=== PATIENT | female | born 1995 | race African-American/Black ===

== ENCOUNTER 2016-11-05 10:07 | Emergency (ER) | payer BC ==
[~2016-11-05 10:07] MED LIST: TYLE3 PO
[2016-11-05 10:10] VITALS: BP 134/64; PULSE 70; RESP 14; TEMP 98.1; O2SAT 98
--- NOTE | 2016-11-05 10:30 | PD ---
HPI Chief Complaint: Abdominal Pain Time Seen by Provider: 10:30 Travel History International Travel<30 days: No Contact w/Intl Traveler<30days: No Traveled to known affect area: No History of Present Illness HPI 21-year-old female came to the emergency room with history of some abdominal discomfort, nausea and vomiting for past 1 week. Patient said that she had her menstruation last week but started spotting again. There was a bedside done prior to my arrival which was negative. Patient did not look to be in any significant discomfort and vital signs are stable. [facility] Past Medical History Narrative Medical List of the past medical history as reviewed from the nursing note. Diminished Hearing: No ?: Not LMP: 11/05/16 Social History Alcohol Use: Yes (occasional) Tobacco Use: No Substance Use: No Allergies-Medications (Allergen,Severity, Reaction): Coded Allergies: No Known Allergies (Unverified , 01/23/16) Comments No known drug allergies. Reported Meds & Prescriptions Reported Meds & Active Scripts Active Macrobid (Nitrofurantoin Monoh/Nitrofur Macro) 100 Mg Cap 100 Mg PO BID Zofran (Ondansetron HCl) 4 Mg Tab 4 Mg PO Q6HR PRN Narrative Medication List of her home medications reviewed from the nursing note. Review of Systems Except as stated in HPI: all other systems reviewed are Neg Physical Exam Narrative GENERAL: Awake, alert, no obvious distress SKIN: Warm and dry. HEAD: Atraumatic. Normocephalic. EYES: Pupils equal and round. No scleral icterus. No injection or drainage. ENT: No nasal bleeding or discharge. Mucous membranes pink and moist. NECK: Trachea midline. No JVD. CARDIOVASCULAR: Regular rate and rhythm. No murmur appreciated. RESPIRATORY: No accessory muscle use. Clear to auscultation. Breath sounds equal bilaterally. GASTROINTESTINAL: Abdomen soft, non-tender, nondistended. Hepatic and splenic margins not palpable. MUSCULOSKELETAL: No obvious deformities. No clubbing. No cyanosis. No edema. NEUROLOGICAL: Awake and alert. No obvious cranial nerve deficits. Motor grossly within normal limits. Normal speech. PSYCHIATRIC: Appropriate mood and affect; insight and judgment normal. Data Data Last Documented VS Vital Signs Date Time Temp Pulse Resp B/P Pulse Ox O2 Delivery O2 Flow Rate FiO2 11/05/16 10:35 18 11/05/16 10:10 98.1 70 134/64 98 Orders Urinalysis - C+S If Indicated (11/05/16 10:30) Ed Urine Pregnancytest Poc (11/05/16 10:30) Ondansetron Odt (Zofran Odt) (11/05/16 10:45) Urine Culture (11/05/16 10:30) Nitrofurantoin Monohyd Macrocr (Macrobid (11/05/16 11:15) Labs Laboratory Tests Test 11/05/16 10:30 Urine Color YELLOW Urine Turbidity HAZY Urine pH 5.5 Urine Specific [place] 1.021 Urine Protein 30 mg/dL Urine Glucose (UA) NEG mg/dL Urine Ketones NEG mg/dL Urine Occult Blood LARGE Urine Nitrite NEG Urine Bilirubin NEG Urine Urobilinogen LESS THAN 2.0 MG/DL Urine Leukocyte Esterase TRACE Urine RBC 10 /hpf Urine WBC 5 /hpf Urine WBC Clumps RARE Urine Squamous Epithelial 8 /hpf Cells Urine Bacteria MOD /hpf Urine Mucus FEW /lpf Microscopic Urinalysis Comment CULTURE INDICATED MDM Medical Decision Making Medical Screen Exam Complete: Yes Emergency Medical Condition: Yes Medical Record Reviewed: Yes Differential Diagnosis Acute gastritis, UTI Narrative Course 11:15 AM UA suggestive of UTI. I'll discharge the patient home on antibiotic prescription and a Zofran prescription. She was given 1 dose of Macrobid in the ER. Procedures EKG Prior to Arrival: No Diagnosis Primary Impression: UTI (urinary tract infection) Qualified Code: N39.0 - Urinary tract infection without hematuria, site unspecified Additional Impression: Acute gastritis Qualified Code: K29.00 - Acute gastritis without hemorrhage, unspecified gastritis type Referrals: Primary Care Physician 2 days Additional Instructions: Please return to the ER if the condition worsens or any other medical complaints. Follow-up with your primary care otherwise. Take the medication as per the prescription direction. Med/Other Pt SpecificInfo: Prescription(s) given Scripts Nitrofurantoin Monohydrate Macrocrystals (Macrobid)100 Mg [id number] Mg PO BID #10 CAP Ref 0 Prov:Zaire Parks MD 11/05/16 Ondansetron (Zofran)4 Mg Tab4 Mg PO Q6HR PRN (NAUSEA OR VOMITING) #10 TAB Ref 0 Prov:Zaire Parks MD 11/05/16 Disposition: 01 DISCHARGE HOME Condition: Stable Zaire Parks MD Nov 05, 2016 10:30 Zaire Parks MD Nov 05, 2016 10:30
[2016-11-05] MEDS ORDERED: ONDANSETRON ODT 4 MG TAB PO ONE (10:45)
[2016-11-05 10:58] LABS: BACTERIA, URINE MOD /hpf; BLOOD, URINE LARGE (NEG); GLUCOSE,URINE NEG (NEG); KETONE, URINE NEG (NEG); MUCUS URINE FEW /lpf (OCC); NITRITE,URINE NEG (NEG); PH, URINE 5.5 (5.0-8.5); SQUAMOUS EPITHELIAL CELL URINE 8 /hpf (0-5); URINE COLOR YELLOW (YELLW/STRAW)
[2016-11-05 10:59] LABS: COMMENT (UR) CULTURE INDICATED; CULTURE IF INDICATED CULTURE INDICATED
[2016-11-05] MEDS ORDERED: NITROFURANTOIN MONOHYD MACROCR 100 MG CAP PO ONE (11:15)
[2016-11-05] MEDS ORDERED: MACR100C2 PO (11:17)
[2016-11-05] MEDS ORDERED: ZOFR4TAB PO (11:17)
== END 2016-11-05 11:30 | disposition home or self-care (01) ==
LOC: NEPE 10:07
DX: N39.0 Urinary tract infection, site not specified (principal); K29.00 Acute gastritis without bleeding
CPT/HCPCS: 81001; 84703; 87086; 99284

== ENCOUNTER 2017-01-14 21:17 | Emergency (ER) | payer BC ==
[~2017-01-14 21:17] MED LIST changes: +MACR100C2 PO; -TYLE3 PO; +ZOFR4TAB PO
[2017-01-14 21:18] VITALS: BP 136/70; PULSE 80; RESP 14; TEMP 98.4; O2SAT 97
--- NOTE | 2017-01-14 22:40 | PD ---
Physical Exam Time Seen by Provider: 22:37 Narrative Pt ate [employer] 3 days ago and has N/V/ D since. Denies hematemesis. Uncertain of stool due to currently being on her menstrual cycle. Associated RLQ pain that is intermittent; mostly right before a BM. Denies fever/ chills. No significant medical history. No other symptoms to report. Data Data Last Documented VS Vital Signs Date Time Temp Pulse Resp B/P Pulse Ox O2 Delivery O2 Flow Rate FiO2 01/14/17 21:18 98.4 80 14 136/70 97 Room Air [facility] Medical Record Reviewed: Yes Supervised Visit with TRAE: No Narrative Course Pt evaluated in triage. Appears without distress. VSS Scripts No Active Prescriptions or Reported Meds Condition: Stable Kaitlin Conrad Jan 14, 2017 22:40
[2017-01-15] MEDS ORDERED: ONDANSETRON ODT 4 MG TAB PO ONE (00:30)
[2017-01-15 01:15] LABS: AUTOMATED NEUTROPHIL # 4.5 TH/MM3 (1.8-7.7); BASOPHIL # 0.1 TH/MM3 (0-0.2); BASOPHIL % 0.8 % (0.0-2.0); EOSINOPHIL # 0.3 TH/MM3 (0-0.4); EOSINOPHIL % 3.6 % (0.0-4.0); LYMPH % 39.9 % (9.0-44.0); LYMPHOCYTE # 3.6 TH/MM3 (1.0-4.8); MEAN CELL VOLUME 72.1 FL (80.0-100.0); MEAN CORPUSCULAR HEMOGLOBIN 23.4 PG (27.0-34.0); MEAN CORPUSCULAR HGB CONC 32.4 % (32.0-36.0); MONO % 5.3 % (0.0-8.0); NEUT % 50.4 % (16.0-70.0); PLATELET COUNT 341 TH/MM3 (150-450); RED BLOOD COUNT 4.72 MIL/MM3 (4.00-5.30); RED CELL DISTRIBUTION WIDTH 14.3 % (11.6-17.2); WHITE BLOOD COUNT 8.9 TH/MM3 (4.0-11.0)
[2017-01-15 01:17] LABS: HEMO FLAGS AUTO DIFF
[2017-01-15 01:37] LABS: ALKALINE PHOSPHATASE 71 U/L (45-117); ALT (GPT) 16 U/L (10-53); ANION GAP 6 MEQ/L (5-15); AST (GOT) 14 U/L (15-37); BLOOD UREA NITROGEN 8 MG/DL (7-18); CHLORIDE 106 MEQ/L (98-107); GLOMERULAR FILTRATION RATE 113 ML/MIN (>89); POTASSIUM 3.4 MEQ/L (3.5-5.1); SODIUM (NA) 139 MEQ/L (136-145); TOTAL BILIRUBIN ADULT 0.2 MG/DL (0.2-1.0)
[2017-01-15 01:47] LABS: OVALOCYTES 1+ (NORMAL)
[2017-01-15 01:48] LABS: SCAN/DIFF AUTO DIFF CONFIRMED
--- NOTE | 2017-01-15 03:08 | PD ---
HPI Chief Complaint: GI Complaint Time Seen by Provider: 02:52 Travel History International Travel<30 days: No Contact w/Intl Traveler<30days: No Traveled to known affect area: No History of Present Illness HPI 21yo F with no PMH presents to the ED with c/o NBNB vomiting and nonbloody diarrhea today. Denies any fever, chest pain, sob, abdominal pain, urinary complaint, vaginal bleeding or discharge. PFSH Past Medical History Medical History: Denies Significant Hx Diminished Hearing: No ?: Not Past Surgical History Surgical History: No Previous Surgery Social History Alcohol Use: Yes (occasional) Tobacco Use: No Substance Use: No Allergies-Medications (Allergen,Severity, Reaction): Coded Allergies: No Known Allergies (Unverified , 01/14/17) Reported Meds & Prescriptions Reported Meds & Active Scripts Active No Active Prescriptions or Reported Medications Review of Systems Except as stated in HPI: all other systems reviewed are Neg Physical Exam Narrative GENERAL: 21yo F well appearing. SKIN: Focused skin assessment warm/dry. HEAD: Atraumatic. Normocephalic. EYES: Pupils equal and round. No scleral icterus. No injection or drainage. ENT: No nasal bleeding or discharge. Mucous membranes pink and moist. NECK: Trachea midline. No JVD. CARDIOVASCULAR: Regular rate and rhythm. No murmur appreciated. RESPIRATORY: No accessory muscle use. Clear to auscultation. Breath sounds equal bilaterally. GASTROINTESTINAL: Abdomen soft, non-tender, nondistended. No rebound tenderness or guarding. MUSCULOSKELETAL: No obvious deformities. No clubbing. No cyanosis. No edema. NEUROLOGICAL: Awake and alert. No obvious cranial nerve deficits. Motor grossly within normal limits. Normal speech. PSYCHIATRIC: Appropriate mood and affect; insight and judgment normal. Data Data Last Documented VS Vital Signs Date Time Temp Pulse Resp B/P Pulse Ox O2 Delivery O2 Flow Rate FiO2 01/14/17 21:18 98.4 80 14 136/70 97 Room Air Orders Complete Blood Count With Diff (01/15/17 00:22) Comprehensive Metabolic Panel (01/15/17 00:22) Lipase (01/15/17 00:22) Urinalysis - C+S If Indicated (01/15/17 00:22) Iv Access Insert/Monitor (01/15/17 00:22) Ed Urine Pregnancytest Poc (01/15/17 00:22) Ondansetron Odt (Zofran Odt) (01/15/17 00:30) Labs Laboratory Tests Test 01/15/17 00:57 White Blood Count 8.9 TH/MM3 Red Blood Count 4.72 MIL/MM3 Hemoglobin 11.0 GM/DL Hematocrit 34.0 % Mean Corpuscular Volume 72.1 FL Mean Corpuscular Hemoglobin 23.4 PG Mean Corpuscular Hemoglobin 32.4 % Concent Red Cell Distribution Width 14.3 % Platelet Count 341 TH/MM3 Mean Platelet Volume 8.9 FL Neutrophils (%) (Auto) 50.4 % Lymphocytes (%) (Auto) 39.9 % Monocytes (%) (Auto) 5.3 % Eosinophils (%) (Auto) 3.6 % Basophils (%) (Auto) 0.8 % Neutrophils # (Auto) 4.5 TH/MM3 Lymphocytes # (Auto) 3.6 TH/MM3 Monocytes # (Auto) 0.5 TH/MM3 Eosinophils # (Auto) 0.3 TH/MM3 Basophils # (Auto) 0.1 TH/MM3 CBC Comment AUTO DIFF Differential Comment AUTO DIFF CONFIRMED Ovalocytes 1+ Sodium Level 139 MEQ/L Potassium Level 3.4 MEQ/L Chloride Level 106 MEQ/L Carbon Dioxide Level 27.0 MEQ/L Anion Gap 6 MEQ/L Blood Urea Nitrogen 8 MG/DL Creatinine 0.78 MG/DL Estimat Glomerular Filtration 113 ML/MIN Rate Random Glucose 89 MG/DL Calcium Level 8.6 MG/DL Total Bilirubin 0.2 MG/DL Aspartate Amino Transf 14 U/L (AST/SGOT) Alanine Aminotransferase 16 U/L (ALT/SGPT) Alkaline Phosphatase 71 U/L Total Protein 7.5 GM/DL Albumin 3.8 GM/DL Lipase 129 U/L [facility] Medical Decision Making Medical Screen Exam Complete: Yes Emergency Medical Condition: Yes Interpretation(s) Laboratory Tests Test 01/15/17 00:57 White Blood Count 8.9 TH/MM3 (4.0-11.0) Red Blood Count 4.72 MIL/MM3 (4.00-5.30) Hemoglobin 11.0 GM/DL (11.6-15.3) Hematocrit 34.0 % (35.0-46.0) Mean Corpuscular Volume 72.1 FL (80.0-100.0) Mean Corpuscular Hemoglobin 23.4 PG (27.0-34.0) Mean Corpuscular Hemoglobin 32.4 % Concent (32.0-36.0) Red Cell Distribution Width 14.3 % (11.6-17.2) Platelet Count 341 TH/MM3 (150-450) Mean Platelet Volume 8.9 FL (7.0-11.0) Neutrophils (%) (Auto) 50.4 % (16.0-70.0) Lymphocytes (%) (Auto) 39.9 % (9.0-44.0) Monocytes (%) (Auto) 5.3 % (0.0-8.0) Eosinophils (%) (Auto) 3.6 % (0.0-4.0) Basophils (%) (Auto) 0.8 % (0.0-2.0) Neutrophils # (Auto) 4.5 TH/MM3 (1.8-7.7) Lymphocytes # (Auto) 3.6 TH/MM3 (1.0-4.8) Monocytes # (Auto) 0.5 TH/MM3 (0-0.9) Eosinophils # (Auto) 0.3 TH/MM3 (0-0.4) Basophils # (Auto) 0.1 TH/MM3 (0-0.2) CBC Comment AUTO DIFF Differential Comment AUTO DIFF CONFIRMED Ovalocytes 1+ (NORMAL) Sodium Level 139 MEQ/L (136-145) Potassium Level 3.4 MEQ/L (3.5-5.1) Chloride Level 106 MEQ/L (98-107) Carbon Dioxide Level 27.0 MEQ/L (21.0-32.0) Anion Gap 6 MEQ/L (5-15) Blood Urea Nitrogen 8 MG/DL (7-18) Creatinine 0.78 MG/DL (0.50-1.00) Estimat Glomerular Filtration 113 ML/MIN Rate (>89) Random Glucose 89 MG/DL (74-106) Calcium Level 8.6 MG/DL (8.5-10.1) Total Bilirubin 0.2 MG/DL (0.2-1.0) Aspartate Amino Transf 14 U/L (15-37) (AST/SGOT) Alanine Aminotransferase 16 U/L (10-53) (ALT/SGPT) Alkaline Phosphatase 71 U/L (45-117) Total Protein 7.5 GM/DL (6.4-8.2) Albumin 3.8 GM/DL (3.4-5.0) Lipase 129 U/L (73-393) Differential Diagnosis Gastroenteritis vs. viral syndrome Narrative Course 21yo F with vomiting and diarrhea today. Pt has no abdominal pain or tenderness on exam. Labs reviewed, no leukocytosis. H/H 34.0. K: 3.4. Pt given zofran and feels better. Tolerating PO now. Pt has not given any urine sample and wants to go. Understands that we will not be able to check for urine infection. VS stable. Return precautions given. Diagnosis Primary Impression: Gastroenteritis Patient Instructions: General Instructions Departure Forms: Tests/Procedures Additional Instructions: Please follow up with your PMD in 3-7 days. Return to the ED if symptoms worsen. Med/Other Pt SpecificInfo: Prescription(s) given Scripts Ondansetron Odt (Zofran Odt)4 Mg Tab4 Mg SL Q8HR PRN (Nausea/Vomiting) #7 TAB Ref 0 Prov:Anita Xiong DO 01/15/17 Disposition: 01 DISCHARGE HOME Condition: Stable Anita Xiong DO Jan 15, 2017 03:08
[2017-01-15] MEDS ORDERED: ZOFR4TAB3 SL (05:03)
== END 2017-01-15 05:11 | disposition home or self-care (01) ==
LOC: NEPC 21:17
DX: K52.9 Noninfective gastroenteritis and colitis, unspecified (principal)
CPT/HCPCS: 80053; 83690; 85025; 99283

== ENCOUNTER 2017-04-30 20:30 | Emergency (ER) | payer SELFPAY ==
[~2017-04-30] VITALS: Ht 160 cm; Wt 68.0 kg
[~2017-04-30 20:30] MED LIST changes: -MACR100C2 PO; -ZOFR4TAB PO; +ZOFR4TAB3 SL
[2017-04-30 20:33] VITALS: BP 116/69; PULSE 127; RESP 16; TEMP 103; O2SAT 100
[2017-04-30] MEDS ORDERED: ONDANSETRON HCL 4 MG/2 ML VIAL IV PUSH ONE (21:30)
[2017-04-30] MEDS ORDERED: SODIUM CHLOR 0.9% 1000 ML INJ 100 ML IV ONE (21:30)
[2017-04-30] MEDS ORDERED: SODIUM CHLOR 0.9% 1000 ML INJ 1,000 ML IV ONE ×2 (21:30)
[2017-04-30 21:35] VITALS: RESP 16
--- NOTE | 2017-04-30 21:50 | PD ---
HPI Chief Complaint: Cold / Flu Symptoms Time Seen by Provider: 21:22 Travel History International Travel<30 days: No Contact w/Intl Traveler<30days: No Traveled to known affect area: No History of Present Illness HPI 21-year-old otherwise healthy female here with complaint of flulike symptoms. Patient has been ill for the last 2 days with body aches, nausea, vomiting, fever, cough. She's had 3 episodes of vomiting. No hematemesis. No associated abdominal pain or diarrhea. Cough is primarily nonproductive. Temperature up to 105 at home, she took Motrin approximately 2 hours prior to arrival. No recent travel or sick contacts. PFSH Past Medical History Medical History: Denies Significant Hx Diminished Hearing: No Immunizations Current: Yes Tetanus Vaccination: Unknown Influenza Vaccination: Yes ?: Not LMP: CURRENTLY Past Surgical History Surgical History: No Previous Surgery Social History Alcohol Use: Yes (occasional) Tobacco Use: No Substance Use: No Allergies-Medications (Allergen,Severity, Reaction): Coded Allergies: No Known Allergies (Unverified , 04/30/17) Reported Meds & Prescriptions Reported Meds & Active Scripts Active No Active Prescriptions or Reported Medications Review of Systems Except as stated in HPI: all other systems reviewed are Neg Physical Exam Narrative GENERAL: Well-appearing female in no acute distress SKIN: Focused skin assessment warm/dry. HEAD: Normocephalic. EYES: Pupils equal and round. No scleral icterus. No injection or drainage. ENT: No nasal bleeding or discharge. Mucous membranes pink and moist. TMs clear bilaterally. NECK: Supple without nuchal rigidity CARDIOVASCULAR: Tachycardic with heart rate in the 120s, regular rhythm. No murmur appreciated. RESPIRATORY: No accessory muscle use. Clear to auscultation. Breath sounds equal bilaterally. GASTROINTESTINAL: Abdomen soft, non-tender, nondistended. Obese MUSCULOSKELETAL: No obvious deformities. No edema. NEUROLOGICAL: Awake and alert. Motor grossly within normal limits. Normal speech. PSYCHIATRIC: Appropriate mood and affect; insight and judgment normal. Data Data Last Documented VS Vital Signs Date Time Temp Pulse Resp B/P Pulse Ox O2 Delivery O2 Flow Rate FiO2 04/30/17 23:18 99.6 98 16 124/64 100 Room Air Orders Complete Blood Count With Diff (04/30/17 21:30) Comprehensive Metabolic Panel (04/30/17 21:30) Lactic Acid Sepsis Protocol (04/30/17 21:30) Urinalysis - C+S If Indicated (04/30/17 21:30) Influenzae A/B Antigen (04/30/17 21:30) Blood Culture (04/30/17 21:30) Chest, Single Ap (04/30/17 21:30) Ecg Monitoring (04/30/17 21:30) Iv Access Insert/Monitor (04/30/17 21:30) Oximetry (04/30/17 21:30) Sodium Chlor 0.9% 1000 Ml Inj (Ns 1000 M (04/30/17 21:30) Sodium Chlor 0.9% 1000 Ml Inj (Ns 1000 M (04/30/17 21:30) Sodium Chlor 0.9% 1000 Ml Inj (Ns 1000 M (04/30/17 21:30) Ondansetron Inj (Zofran Inj) (04/30/17 21:30) Acetaminophen (Tylenol) (04/30/17 22:00) Urine Culture (04/30/17 21:40) Labs Laboratory Tests Test 04/30/17 21:40 White Blood Count 4.5 TH/MM3 Red Blood Count 4.80 MIL/MM3 Hemoglobin 11.0 GM/DL Hematocrit 34.6 % Mean Corpuscular Volume 71.9 FL Mean Corpuscular Hemoglobin 22.9 PG Mean Corpuscular Hemoglobin 31.8 % Concent Red Cell Distribution Width 13.9 % Platelet Count 246 TH/MM3 Mean Platelet Volume 9.5 FL Neutrophils (%) (Auto) 73.3 % Lymphocytes (%) (Auto) 17.9 % Monocytes (%) (Auto) 7.8 % Eosinophils (%) (Auto) 0.4 % Basophils (%) (Auto) 0.6 % Neutrophils # (Auto) 3.3 TH/MM3 Lymphocytes # (Auto) 0.8 TH/MM3 Monocytes # (Auto) 0.4 TH/MM3 Eosinophils # (Auto) 0.0 TH/MM3 Basophils # (Auto) 0.0 TH/MM3 CBC Comment DIFF FINAL Differential Comment Urine Color YELLOW Urine Turbidity HAZY Urine pH 5.5 Urine Specific [place] 1.003 Urine Protein NEG mg/dL Urine Glucose (UA) NEG mg/dL Urine Ketones NEG mg/dL Urine Occult Blood MOD Urine Nitrite NEG Urine Bilirubin NEG Urine Urobilinogen LESS THAN 2.0 MG/DL Urine Leukocyte Esterase NEG Urine RBC 83 /hpf Urine Squamous Epithelial 1 /hpf Cells Urine Bacteria FEW /hpf Microscopic Urinalysis Comment CATH-CULTURE IND Sodium Level 137 MEQ/L Potassium Level 3.3 MEQ/L Chloride Level 105 MEQ/L Carbon Dioxide Level 25.2 MEQ/L Anion Gap 7 MEQ/L Blood Urea Nitrogen 3 MG/DL Creatinine 0.98 MG/DL Estimat Glomerular Filtration 87 ML/MIN Rate Random Glucose 83 MG/DL Lactic Acid Level 1.3 mmol/L Calcium Level 8.3 MG/DL Total Bilirubin 0.2 MG/DL Aspartate Amino Transf 20 U/L (AST/SGOT) Alanine Aminotransferase 20 U/L (ALT/SGPT) Alkaline Phosphatase 61 U/L Total Protein 7.3 GM/DL Albumin 3.5 GM/DL [facility] Medical Decision Making Medical Screen Exam Complete: Yes Emergency Medical Condition: Yes Medical Record Reviewed: Yes Differential Diagnosis 21-year-old female here with 2 days of flulike symptoms, nausea vomiting, body aches and fever, cough. Febrile to 103, tachycardic in the 120s but well- appearing on exam. Differential includes viral syndrome, influenza, pneumonia, gastritis, and less likely bacteremia, UTI Narrative Course Patient placed on monitor, IV established and blood obtained. Given IV fluid bolus, 4 mg Zofran, Tylenol. CBC, CMP, lactate, blood cultures, urinalysis and influenza swab were obtained and notable for hematuria, patient currently menstruating. Potassium 3.3, replaced orally. Portable chest x-ray obtained showing no acute abnormalities. Vital signs markedly improved, now afebrile 99.6 and heart rate in the 90s. Patient reassured and discharged home. Diagnosis Primary Impression: Viral syndrome Additional Impressions: Hypokalemia Fever Qualified Code: R50.9 - Fever, unspecified fever cause Tachycardia Referrals: Primary Care Physician as needed Additional Instructions: Drink plenty of fluids. Tylenol, ibuprofen as needed for fever or body aches. Return to the ER for the warning signs discussed. Med/Other Pt SpecificInfo: No Change to Meds Scripts No Active Prescriptions or Reported Meds Disposition: DISCHARGE HOME Condition: Stable Leny Alonzo MD Apr 30, 2017 21:50
[2017-04-30] MEDS ORDERED: ACETAMINOPHEN 500 MG CPLT PO ONE (22:00)
[2017-04-30 22:11] VITALS: BP 121/72; PULSE 101; RESP 16; TEMP 101; O2SAT 98
[2017-04-30 22:16] LABS: AUTOMATED NEUTROPHIL # 3.3 TH/MM3 (1.8-7.7); BASOPHIL % 0.6 % (0.0-2.0); EOSINOPHIL % 0.4 % (0.0-4.0); HEMATOCRIT 34.6 % (35.0-46.0); HEMO FLAGS DIFF FINAL; LYMPH % 17.9 % (9.0-44.0); LYMPHOCYTE # 0.8 TH/MM3 (1.0-4.8); MEAN CELL VOLUME 71.9 FL (80.0-100.0); MEAN CORPUSCULAR HEMOGLOBIN 22.9 PG (27.0-34.0); MEAN CORPUSCULAR HGB CONC 31.8 % (32.0-36.0); MONO % 7.8 % (0.0-8.0); NEUT % 73.3 % (16.0-70.0); PLATELET COUNT 246 TH/MM3 (150-450); RED CELL DISTRIBUTION WIDTH 13.9 % (11.6-17.2); WHITE BLOOD COUNT 4.5 TH/MM3 (4.0-11.0)
--- NOTE | 2017-04-30 22:17 | RADRPT ---
EXAM DATE/TIME: 04/30/2017 21:44 [place] COMPARISON: No previous studies available for comparison. INDICATIONS : Fever, flu-like symptoms for 3 days MEDICAL HISTORY : None. SURGICAL HISTORY : None. ENCOUNTER: Initial ACUITY: 3 days PAIN SCORE: 0/10 LOCATION: Bilateral chest FINDINGS: A single view of the chest demonstrates the lungs to be symmetrically aerated without evidence of mas s, infiltrate or effusion. The cardiomediastinal contours are unremarkable. Osseous structures are intact. CONCLUSION: No evidence of acute cardiopulmonary disease. Christopher Crocker MD on April 30, 2017 at 22:15 Board Certified Radiologist. This report was verified electronically.
[2017-04-30 22:21] LABS: BACTERIA, URINE FEW /hpf; BLOOD, URINE MOD (NEG); GLUCOSE,URINE NEG (NEG); KETONE, URINE NEG (NEG); NITRITE,URINE NEG (NEG); PH, URINE 5.5 (5.0-8.5); SQUAMOUS EPITHELIAL CELL URINE 1 /hpf (0-5); URINE COLOR YELLOW (YELLW/STRAW)
[2017-04-30 22:27] LABS: COMMENT (UR) CATH-CULTURE IND; CULTURE IF INDICATED CATH CULTURE IND
[2017-04-30 22:28] LABS: ALKALINE PHOSPHATASE 61 U/L (45-117); ALT (GPT) 20 U/L (10-53); TOTAL BILIRUBIN ADULT 0.2 MG/DL (0.2-1.0)
[2017-04-30 22:33] LABS: ANION GAP 7 MEQ/L (5-15); AST (GOT) 20 U/L (15-37); BICARBONATE 25.2 MEQ/L (21.0-32.0); BLOOD UREA NITROGEN 3 MG/DL (7-18); CHLORIDE 105 MEQ/L (98-107); GLOMERULAR FILTRATION RATE 87 ML/MIN (>89); POTASSIUM 3.3 MEQ/L (3.5-5.1); SODIUM (NA) 137 MEQ/L (136-145)
[2017-04-30 22:37] VITALS: TEMP 100.5
[2017-04-30 23:18] VITALS: BP 124/64; PULSE 98; RESP 16; TEMP 99.6; O2SAT 100
[2017-04-30] MEDS ORDERED: POTASSIUM CHLORIDE 20 MEQ CONTROLLED RELEASE TAB PO ONE (23:45)
[2017-04-30] MEDS ORDERED: POTASSIUM CHLORIDE 25 MEQ EFFERVESCENT TAB NG ONE (23:50)
[2017-05-01] MEDS ORDERED: POTASSIUM CHLORIDE 25 MEQ EFFERVESCENT TAB NG SCH (09:00)
== END 2017-05-01 00:25 | disposition home or self-care (01) ==
LOC: NEPE 20:30
DX: B34.9 Viral infection, unspecified (principal); E87.6 Hypokalemia; R00.0 Tachycardia, unspecified
CPT/HCPCS: 71010; 80053; 81001; 83605; 85025; 87040; 87086; 87804; 96374; 99284; J2405; J7030

== ENCOUNTER 2017-06-19 08:37 | Emergency (ER) | payer SELFPAY ==
[~2017-06-19] VITALS: Ht 157.5 cm; Wt 75.0 kg
[2017-06-19 08:41] VITALS: BP 135/74; PULSE 78; RESP 16; TEMP 98.8; O2SAT 99
[2017-06-19 09:21] LABS: AUTOMATED NEUTROPHIL # 3.1 TH/MM3 (1.8-7.7); BASOPHIL # 0.3 TH/MM3 (0-0.2); BASOPHIL % 5.4 % (0.0-2.0); EOSINOPHIL # 0.3 TH/MM3 (0-0.4); HEMATOCRIT 35.4 % (35.0-46.0); HEMO FLAGS DIFF FINAL; LYMPH % 32.9 % (9.0-44.0); MEAN CELL VOLUME 73.1 FL (80.0-100.0); MEAN CORPUSCULAR HEMOGLOBIN 23.2 PG (27.0-34.0); MEAN CORPUSCULAR HGB CONC 31.7 % (32.0-36.0); MONO % 5.6 % (0.0-8.0); NEUT % 51.1 % (16.0-70.0); PLATELET COUNT 358 TH/MM3 (150-450); RED BLOOD COUNT 4.85 MIL/MM3 (4.00-5.30); RED CELL DISTRIBUTION WIDTH 14.8 % (11.6-17.2); WHITE BLOOD COUNT 6.1 TH/MM3 (4.0-11.0)
[2017-06-19 09:37] LABS: BACTERIA, URINE MOD /hpf; BICARBONATE 23.9 MEQ/L (21.0-32.0); BLOOD, URINE LARGE (NEG); COMMENT (UR) CULTURE INDICATED; CULTURE IF INDICATED CULTURE INDICATED; GLUCOSE,URINE NEG (NEG); KETONE, URINE NEG (NEG); MUCUS URINE FEW /lpf (OCC); NITRITE,URINE NEG (NEG); PH, URINE 5.5 (5.0-8.5); POTASSIUM 3.5 MEQ/L (3.5-5.1); SQUAMOUS EPITHELIAL CELL URINE 14 /hpf (0-5)
[2017-06-19] MEDS ORDERED: DICY10 PO (09:39)
[2017-06-19] MEDS ORDERED: LOMO2.5T PO (09:39)
[2017-06-19] MEDS ORDERED: ZOFR4TAB3 SL (09:39)
--- NOTE | 2017-06-19 09:39 | PD ---
HPI Chief Complaint: GI Complaint Time Seen by Provider: 09:25 Travel History International Travel<30 days: No Contact w/Intl Traveler<30days: No Traveled to known affect area: No History of Present Illness HPI 21-year-old female complains of nausea vomiting diarrhea and abdominal Cramping. Patient states that the symptoms started yesterday. Patient denies any fever chills. Patient denies any coughing congestion. Patient states the abdominal pain is mild intermittent cramping pain diffuse over the abdomen. Patient denies any pain radiation. Patient denies any dysuria or frequency. Patient denies any vaginal discharge or bleeding. Patient denies any chance of being . PFSH Past Medical History Diminished Hearing: No Immunizations Current: Yes ?: Not LMP: 06/18/17 Social History Alcohol Use: Yes (occasional) Tobacco Use: No Substance Use: No Allergies-Medications (Allergen,Severity, Reaction): Coded Allergies: No Known Allergies (Unverified , 06/19/17) Reported Meds & Prescriptions Reported Meds & Active Scripts Active No Active Prescriptions or Reported Medications Review of Systems General / Constitutional: No: Fever Eyes: No: Visual changes HENT: No: Headaches Cardiovascular: No: Chest Pain or Discomfort Respiratory: No: Shortness of Breath Gastrointestinal: Positive: Nausea, Vomiting, Diarrhea, Abdominal Pain Genitourinary: No: Dysuria Musculoskeletal: No: Pain Skin: No Rash Neurologic: No: Weakness Psychiatric: No: Depression Endocrine: No: Polydipsia Hematologic/Lymphatic: No: Easy Bruising Physical Exam Narrative GENERAL: Well-nourished, well-developed patient. SKIN: Focused skin assessment warm/dry. HEAD: Normocephalic. EYES: No scleral icterus. No injection or drainage. NECK: Supple, trachea midline. No JVD or lymphadenopathy. CARDIOVASCULAR: Regular rate and rhythm without murmurs, gallops, or rubs. RESPIRATORY: Breath sounds equal bilaterally. No accessory muscle use. GASTROINTESTINAL: Abdomen soft, nondistended. Mild diffuse tenderness over the lower abdomen. No rebound tenderness. No mass. MUSCULOSKELETAL: No cyanosis, or edema. BACK: Nontender without obvious deformity. No CVA tenderness. Data Data Last Documented VS Vital Signs Date Time Temp Pulse Resp B/P (MAP) Pulse Ox O2 Delivery O2 Flow Rate FiO2 06/19/17 08:41 98.8 78 16 135/74 (94) 99 Orders Orders Complete Blood Count With Diff (06/19/17 08:45) Basic Metabolic Panel (Bmp) (06/19/17 08:45) Urinalysis - C+S If Indicated (06/19/17 08:45) Ed Urine Pregnancytest Poc (06/19/17 08:45) Labs Laboratory Tests Test 06/19/17 09:02 White Blood Count 6.1 TH/MM3 Red Blood Count 4.85 MIL/MM3 Hemoglobin 11.2 GM/DL Hematocrit 35.4 % Mean Corpuscular Volume 73.1 FL Mean Corpuscular Hemoglobin 23.2 PG Mean Corpuscular Hemoglobin Concent 31.7 % Red Cell Distribution Width 14.8 % Platelet Count 358 TH/MM3 Mean Platelet Volume 9.1 FL Neutrophils (%) (Auto) 51.1 % Lymphocytes (%) (Auto) 32.9 % Monocytes (%) (Auto) 5.6 % Eosinophils (%) (Auto) 5.0 % Basophils (%) (Auto) 5.4 % Neutrophils # (Auto) 3.1 TH/MM3 Lymphocytes # (Auto) 2.0 TH/MM3 Monocytes # (Auto) 0.3 TH/MM3 Eosinophils # (Auto) 0.3 TH/MM3 Basophils # (Auto) 0.3 TH/MM3 CBC Comment DIFF FINAL Differential Comment MDM Medical Decision Making Medical Screen Exam Complete: Yes Emergency Medical Condition: Yes Interpretation(s) Urine test negative. Differential Diagnosis Differential diagnosis including gastroenteritis, gastritis, PUD, pancreatitis, cholecystitis, colitis, UTI, pyelonephritis. Narrative Course 21-year-old female with abdominal cramp nausea vomiting diarrhea. Diagnosis Primary Impression: Gastroenteritis Patient Instructions: General Instructions Additional Instructions: Clear fluids for 24 hours and advance as tolerated. Take medications as needed. Follow-up with personal physician. Return if persistent problem worse. Med/Other Pt SpecificInfo: Prescription(s) given Scripts Diphenoxylate-Atropine (Lomotil) 2.5-0.025 Mg Tab 1 TAB PO Q6H Y for DIARRHEA, #10 TAB 0 Refills Prov: Rolf Estrada MD 06/19/17 Dicyclomine (Bentyl) 10 Mg Cap 10 MG PO TID Y for Bowel Management, #15 CAP 0 Refills Prov: Rolf Estrada MD 9/2/17 Ondansetron Odt (Zofran Odt) 4 Mg Tab 4 MG SL Q6HR Y for Nausea/Vomiting, #10 TAB 0 Refills Prov: Rolf Estrada MD 06/19/17 Disposition: 01 DISCHARGE HOME Condition: Stable Rolf Estrada MD Jun 19, 2017 09:39
[2017-06-19 10:01] VITALS: BP 122/78; TEMP 97.8
[2017-06-19 13:25] LABS: URINE COLOR RED (YELLW/STRAW)
== END 2017-06-19 10:02 | disposition home or self-care (01) ==
LOC: NEPD 08:37
DX: K52.9 Noninfective gastroenteritis and colitis, unspecified (principal); R82.71 Bacteriuria
CPT/HCPCS: 80048; 81001; 84703; 85025; 87086; 99284

== ENCOUNTER 2017-07-10 00:04 | Emergency (ER) | payer SELFPAY ==
[~2017-07-10] VITALS: Ht 157.5 cm; Wt 78.0 kg
[~2017-07-10 00:04] MED LIST changes: +DICY10 PO; +LOMO2.5T PO
[2017-07-10 00:05] VITALS: BP 152/65; PULSE 80; RESP 15; TEMP 99.4; O2SAT 100
[2017-07-10 01:45] LABS: BLOOD, URINE NEG (NEG); COMMENT (UR) CULT NOT INDICATED; CULTURE IF INDICATED CULT NOT INDICATED; GLUCOSE,URINE NEG (NEG); KETONE, URINE NEG (NEG); MUCUS URINE FEW /lpf (OCC); NITRITE,URINE NEG (NEG); PH, URINE 6.5 (5.0-8.5); SQUAMOUS EPITHELIAL CELL URINE <1 /hpf (0-5); URINE COLOR YELLOW (YELLW/STRAW)
--- NOTE | 2017-07-10 01:47 | PD ---
HPI Chief Complaint: GI Complaint Time Seen by Provider: 00:59 Travel History International Travel<30 days: No Contact w/Intl Traveler<30days: No Traveled to known affect area: No History of Present Illness HPI 21-year-old female presents to the emergency department for complaint of UTI. Patient's had symptoms for approximately 2 weeks. Symptoms have worsened were not she has dysuria frequency and urgency. Patient denies fever chills nausea vomiting flank pain hematuria vaginal bleeding or vaginal discharge. Last menses was 2 weeks ago and normal for her patient denies . Patient has history of UTI states symptoms are the same. PFSH Past Medical History Narrative Medical Gastroenteritis, UTI; no tobacco use; nursing notes reviewed Diminished Hearing: No Gastrointestinal Disorders: Yes (GASTROENTERITIS) Immunizations Current: Yes ?: Unknown LMP: 06/14/17 Past Surgical History Surgical History: No Previous Surgery Social History Alcohol Use: No Tobacco Use: No Substance Use: No Allergies-Medications (Allergen,Severity, Reaction): Coded Allergies: No Known Allergies (Unverified , 07/10/17) Reported Meds & Prescriptions Reported Meds & Active Scripts Active Lomotil (Diphenoxylate-Atropine) 2.5-0.025 Mg Tab 1 Tab PO Q6H PRN Bentyl (Dicyclomine HCl) 10 Mg Cap 10 Mg PO TID PRN Zofran Odt (Ondansetron Odt) 4 Mg Tab 4 Mg SL Q6HR PRN Review of Systems General / Constitutional: No: Fever, Chills HENT: No: Congestion Cardiovascular: No: Chest Pain or Discomfort Respiratory: No: Shortness of Breath Gastrointestinal: No: Nausea, Vomiting, Diarrhea, Abdominal Pain Genitourinary: Positive: Urgency, Frequency, Dysuria, Other (suprapubic pressure), No: Hematuria Musculoskeletal: No: Myalgias, Arthralgias Skin: No Rash Neurologic: No: Weakness Psychiatric: No: Anxiety Hematologic/Lymphatic: No: Lymph Node Enlargement Physical Exam Narrative GENERAL: Well-developed well-nourished female in no acute distress no respiratory distress SKIN: Warm and dry. HEAD: Normocephalic. EYES: No scleral icterus. No injection or drainage. NECK: Supple, trachea midline. No JVD or lymphadenopathy. CARDIOVASCULAR: Regular rate and rhythm without murmurs, gallops, or rubs. RESPIRATORY: Breath sounds equal bilaterally. No accessory muscle use. GASTROINTESTINAL: Abdomen soft, nontender minimal suprapubic tenderness to palpation without guarding or rebound, nondistended. Pelvic exam: Normal external exam no redness no induration no lesions; speculum exam no discharge no blood no clots cervical os is closed; bimanual exam no adnexal mass or tenderness no cervical motion tenderness no uterine enlargement MUSCULOSKELETAL: No cyanosis, or edema. BACK: Nontender without obvious deformity. No CVA tenderness. Data Data Last Documented VS Vital Signs Date Time Temp Pulse Resp B/P (MAP) Pulse Ox O2 Delivery O2 Flow Rate FiO2 07/10/17 00:05 99.4 80 15 152/65 (94) 100 Room Air Orders Orders Urinalysis - C+S If Indicated (07/10/17 01:09) Ed Urine Pregnancytest Poc (07/10/17 01:09) Labs Laboratory Tests Test 07/10/17 01:10 Urine Color YELLOW Urine Turbidity CLEAR Urine pH 6.5 Urine Specific [place] 1.021 Urine Protein NEG mg/dL Urine Glucose (UA) NEG mg/dL Urine Ketones NEG mg/dL Urine Occult Blood NEG Urine Nitrite NEG Urine Bilirubin NEG Urine Urobilinogen LESS THAN 2.0 MG/DL Urine Leukocyte Esterase NEG Urine RBC 1 /hpf Urine Squamous Epithelial Cells <1 /hpf Urine Mucus FEW /lpf Microscopic Urinalysis Comment CULT NOT INDICATED MDM Medical Decision Making Medical Screen Exam Complete: Yes Emergency Medical Condition: Yes Medical Record Reviewed: Yes Interpretation(s) [id number] hCG: Negative Urinalysis: Normal values culture not indicated Differential Diagnosis [facility] Narrative Course Urine specimen collected [id number] hCG performed [id number] hCG is negative urinalysis normal; PCR for GC and chlamydia will be sent. Patient offered Toradol for complaint of 3/10 pain; declines any medication administration; states she feels well was just concerned about a urinary tract infection; the patient is stable for outpatient management. Diagnosis Primary Impression: Female pelvic pain Referrals: Primary Care Physician call for appointment Patient Instructions: General Instructions Additional Instructions: May use [id number] ibuprofen per package instructions as needed for pain associated inflammation or for fever 100.4F or greater Follow-up with your area sales manager/primary care provider Return to the emergency department for any concerns or change in condition Disposition: 01 DISCHARGE HOME Condition: Stable Salter,Corinna H. MD Jul 10, 2017 01:47
[2017-07-10 03:17] VITALS: BP 146/86; PULSE 80; RESP 18; TEMP 98.1; O2SAT 100
[2017-07-10 09:54] LABS: CHLAMYDIA PCR NOT DETECTED (NOT DETECT); NEISSERIA PCR NOT DETECTED (NOT DETECT)
== END 2017-07-10 03:18 | disposition home or self-care (01) ==
LOC: NEPC 00:04
DX: R10.2 Pelvic and perineal pain (principal); R30.0 Dysuria
CPT/HCPCS: 81001; 84703; 87491; 87591; 99284

== ENCOUNTER 2017-08-04 23:49 | Emergency (ER) | payer OTHER ==
[~2017-08-04] VITALS: Ht 157.5 cm; Wt 76.0 kg
[2017-08-04 23:51] VITALS: BP 121/58; PULSE 87; RESP 16; TEMP 99; O2SAT 99
[2017-08-05 00:43] LABS: AUTOMATED NEUTROPHIL # 6.1 TH/MM3 (1.8-7.7); BASOPHIL # 0.1 TH/MM3 (0-0.2); BASOPHIL % 0.9 % (0.0-2.0); EOSINOPHIL # 0.2 TH/MM3 (0-0.4); EOSINOPHIL % 2.4 % (0.0-4.0); HEMATOCRIT 31.2 % (35.0-46.0); HEMO FLAGS DIFF FINAL; LYMPH % 27.9 % (9.0-44.0); LYMPHOCYTE # 2.8 TH/MM3 (1.0-4.8); MEAN CELL VOLUME 70.9 FL (80.0-100.0); MEAN CORPUSCULAR HEMOGLOBIN 23.4 PG (27.0-34.0); MONO % 7.1 % (0.0-8.0); NEUT % 61.7 % (16.0-70.0); PLATELET COUNT 335 TH/MM3 (150-450); WHITE BLOOD COUNT 9.9 TH/MM3 (4.0-11.0)
[2017-08-05 00:59] LABS: BLOOD, URINE NEG (NEG); COMMENT (UR) CULT NOT INDICATED; CULTURE IF INDICATED CULT NOT INDICATED; GLUCOSE,URINE NEG (NEG); KETONE, URINE NEG (NEG); NITRITE,URINE NEG (NEG); SQUAMOUS EPITHELIAL CELL URINE 3 /hpf (0-5); URINE COLOR YELLOW (YELLW/STRAW)
[2017-08-05 01:06] LABS: BICARBONATE 24.2 MEQ/L (21.0-32.0); POTASSIUM 4.7 MEQ/L (3.5-5.1)
--- NOTE | 2017-08-05 01:25 | PD ---
HPI Chief Complaint: Abdominal Pain Time Seen by Provider: 00:25 Travel History International Travel<30 days: No Contact w/Intl Traveler<30days: No Traveled to known affect area: No History of Present Illness HPI This is a 21-year-old female presents today with complaints of nausea vomiting abdominal pain. Patient also reports external vaginal itching. The patient states her last period was at the beginning of June. When asked if she thought she was , she states I don't know. The patient denies any fevers, chills. She denies any diarrhea. She denies any vaginal discharge. There is no reported dysuria urgency or frequency. PFSH Past Medical History Medical History: Denies Significant Hx Diminished Hearing: No Gastrointestinal Disorders: Yes (GASTROENTERITIS) Immunizations Current: Yes ?: Unknown LMP: 06/18/17 Past Surgical History Surgical History: No Previous Surgery Social History Alcohol Use: No Tobacco Use: No Substance Use: No Allergies-Medications (Allergen,Severity, Reaction): Coded Allergies: No Known Allergies (Unverified , 08/04/17) Reported Meds & Prescriptions Reported Meds & Active Scripts Active Plus Iron 29-1 mg ( Vit-Iron Carbonyl) 29 Mg Iron-1 Mg Tab 1 Tab PO DAILY Clotrimazole 7 Vaginal (Clotrimazole Vaginal) 1% Cream 1 Appl VAGINAL HS Lomotil (Diphenoxylate-Atropine) 2.5-0.025 Mg Tab 1 Tab PO Q6H PRN Bentyl (Dicyclomine HCl) 10 Mg Cap 10 Mg PO TID PRN Zofran Odt (Ondansetron Odt) 4 Mg Tab 4 Mg SL Q6HR PRN Review of Systems Except as stated in HPI: all other systems reviewed are Neg General / Constitutional: No: Fever, Chills HENT: No: Headaches, Vertigo, Lightheadedness Cardiovascular: No: Chest Pain or Discomfort, Palpitations Respiratory: No: Cough, Shortness of Breath Gastrointestinal: Positive: Nausea, Vomiting, Abdominal Pain (lower crampy type pain), No: Diarrhea Genitourinary: Positive: Other (external vaginal itching), No: Vaginal Bleeding Musculoskeletal: No: Weakness, Pain Neurologic: No: Weakness, Dizziness, Headache, Change in Mentation Physical Exam Narrative GENERAL: Well-nourished, well-developed patient, in no acute respiratory distress. SKIN: Focused skin assessment warm/dry. HEAD: Normocephalic. EYES: No scleral icterus. No injection or drainage. No JVD or lymphadenopathy. CARDIOVASCULAR: Regular rate and rhythm without murmurs, gallops, or rubs. RESPIRATORY: Breath sounds equal bilaterally. No accessory muscle use. GASTROINTESTINAL: Abdomen soft, nondistended. The patient had subjective suprapubic discomfort. No right or left lower quadrant pain. No rebound or guarding. GENITOURINARY: In the present of the nurse Roslyn. Normal external genitalia without lesions or erythema. Vaginal vault without blood. Patient had thick white discharge noted in her vaginal vault. Cervical os was closed. MUSCULOSKELETAL: No cyanosis, or edema. NEUROLOGICAL: Awake and alert. Cranial nerves II through XII intact. Motor grossly within normal limits. Five out of 5 muscle strength in all muscle groups. Normal speech. Data Data Last Documented VS Vital Signs Date Time Temp Pulse Resp B/P (MAP) Pulse Ox O2 Delivery O2 Flow Rate FiO2 08/04/17 23:51 99.0 87 16 121/58 (79) 99 Room Air Orders Orders Beta Hcg (Quant/Titer) (08/05/17 00:25) Complete Blood Count With Diff (08/05/17 00:25) Basic Metabolic Panel (Bmp) (08/05/17 00:25) Urinalysis - C+S If Indicated (08/05/17 00:25) Us Pelvis (Ques Preg/Ectopic) (08/05/17 00:25) Ed Urine Pregnancytest Poc (08/05/17 00:25) Wet Prep Profile (08/05/17 01:18) Gc And Chlamydia Pcr (08/05/17 01:18) Labs Laboratory Tests Test 08/05/17 00:30 08/05/17 01:00 White Blood Count 9.9 TH/MM3 Red Blood Count 4.40 MIL/MM3 Hemoglobin 10.3 GM/DL Hematocrit 31.2 % Mean Corpuscular Volume 70.9 FL Mean Corpuscular Hemoglobin 23.4 PG Mean Corpuscular Hemoglobin Concent 33.0 % Red Cell Distribution Width 14.0 % Platelet Count 335 TH/MM3 Mean Platelet Volume 8.7 FL Neutrophils (%) (Auto) 61.7 % Lymphocytes (%) (Auto) 27.9 % Monocytes (%) (Auto) 7.1 % Eosinophils (%) (Auto) 2.4 % Basophils (%) (Auto) 0.9 % Neutrophils # (Auto) 6.1 TH/MM3 Lymphocytes # (Auto) 2.8 TH/MM3 Monocytes # (Auto) 0.7 TH/MM3 Eosinophils # (Auto) 0.2 TH/MM3 Basophils # (Auto) 0.1 TH/MM3 CBC Comment DIFF FINAL Differential Comment Urine Color YELLOW Urine Turbidity CLEAR Urine pH 7.0 Urine Specific [place] 1.019 Urine Protein TRACE mg/dL Urine Glucose (UA) NEG mg/dL Urine Ketones NEG mg/dL Urine Occult Blood NEG Urine Nitrite NEG Urine Bilirubin NEG Urine Urobilinogen LESS THAN 2.0 MG/DL Urine Leukocyte Esterase MOD Urine RBC 1 /hpf Urine WBC 1 /hpf Urine Squamous Epithelial Cells 3 /hpf Urine Amorphous Sediment RARE Microscopic Urinalysis Comment CULT NOT INDICATED Blood Urea Nitrogen 10 MG/DL Creatinine 0.97 MG/DL Random Glucose 81 MG/DL Calcium Level 8.4 MG/DL Sodium Level 135 MEQ/L Potassium Level 4.7 MEQ/L Chloride Level 104 MEQ/L Carbon Dioxide Level 24.2 MEQ/L Anion Gap 7 MEQ/L Estimat Glomerular Filtration Rate 88 ML/MIN Human Chorionic Gonadotropin, Quant 97958 MIU/ML Clue Cells (Wet Prep) NONE SEEN Vaginal Trichomonas (Wet Prep) NONE SEEN Vaginal Yeast (Wet Prep) PRESENT MDM Medical Decision Making Medical Screen Exam Complete: Yes Emergency Medical Condition: Yes Differential Diagnosis Pelvic infection versus versus urinary tract infection Narrative Course 21-year-old female who presents with abdominal pain with associated nausea vomiting. Patient also reported external vaginal itching. The patient had a positive urine test. Beta hCG was 49,000. Patient's ultrasound shows a six-week intrauterine . Wet prep did show positive use. She' ll be treated with clotrimazole vaginal yeast insertions. She'll also be given a prescription for vitamins. She is instructed to follow up with a [employer]INE doctor for choice. Diagnosis Primary Impression: intrauterine at 6 weeks. Additional Impression: Vaginal yeast infection Additional Instructions: Follow up with [facility] of your choice. Return if worsening discomfort, fevers chills, or any other reason that concerned her. Scripts Vit-Iron Carbonyl ( Plus Iron 29-1 mg) 29 Mg Iron-1 Mg Tab 1 TAB PO DAILY for Nutritional Supplement, #30 TAB 0 Refills Prov: Yoav Landis MD 08/05/17 Clotrimazole Vaginal (Clotrimazole 7 Vaginal) 1% Cream 1 APPL VAGINAL HS for Fungal Infection, #45 GM 0 Refills Prov: Yoav Landis MD 08/05/17 Disposition: 01 DISCHARGE HOME Condition: Stable Yoav Landis MD Aug 05, 2017 01:25
--- NOTE | 2017-08-05 02:29 | RADRPT ---
EXAM DATE/TIME: 08/05/2017 01:34 [facility] COMPARISON: No previous studies available for comparison. INDICATIONS : Pelvic pain. LAB(S): Beta-hC MEDICAL HISTORY : . SURGICAL HISTORY : None. ENCOUNTER: Initial ACUITY: 1 day PAIN SCORE: 0/10 LOCATION: Bilateral pelvis MEASUREMENTS: UTERUS: 9.9 x 4.8 x 4.7 cm ENDOMETRIAL STRIPE: 13 mm RIGHT OVARY: 2.7 x 3.1 x 1.7 cm LEFT OVARY: 2.6 x 2.4 x 1.9 cm FREE FLUID: No CROWN RUMP LENGTH: 0.49 cm = 6 WKS 1 DAYS FHR: 125 BPM FINDINGS: Ultrasound of the pelvis via transabdominal transvaginal approach demonstrates a single viable intrau terine with a crown-rump length of 5 mm corresponding to a six-week one-day gestation Cardi ac activity is identified at 125 beats per minute. No free fluid or adnexal masses are identified. Examination of the right ovary demonstrates no abnormality. Examination of the left ovary demonstrates no abnormality. CONCLUSION: 1. Intrauterine at 6 weeks one day Mj Wood MD on August 05, 2017 at 2:26 Board Certified Radiologist. This report was verified electronically.
[2017-08-05] MEDS ORDERED: CLOT1CRE23 VAGINAL (02:36)
[2017-08-05] MEDS ORDERED: PREN29TA PO (02:36)
[2017-08-05 06:07] LABS: CHLAMYDIA PCR NOT DETECTED (NOT DETECT); NEISSERIA PCR NOT DETECTED (NOT DETECT)
== END 2017-08-05 04:05 | disposition home or self-care (01) ==
LOC: NEPE 23:49
DX: O98.811 Other maternal infectious and parasitic diseases complicating pregnancy, first trimester (principal); B37.3 Candidiasis of vulva and vagina; Z3A.01 Less than 8 weeks gestation of pregnancy
CPT/HCPCS: 76700; 80048; 81001; 84702; 84703; 85025; 87210; 87491; 87591; 99284

== ENCOUNTER 2017-08-17 10:00 | Emergency (ER) | payer OTHER ==
[~2017-08-17] VITALS: Ht 157.5 cm; Wt 75.0 kg
[~2017-08-17 10:00] MED LIST changes: +CLOT1CRE23 VAGINAL; +PREN29TA PO
[2017-08-17 10:01] VITALS: BP 123/64; PULSE 98; RESP 20; TEMP 98.8; O2SAT 99
[2017-08-17] MEDS ORDERED: SODIUM CHLOR 0.9% 1000 ML INJ 1,000 ML IV ONE (10:17)
--- NOTE | 2017-08-17 10:21 | PD ---
HPI Chief Complaint: Related Problem Time Seen by Provider: 10:15 Travel History International Travel<30 days: No Contact w/Intl Traveler<30days: No Traveled to known affect area: No History of Present Illness HPI Patient is a 21-year-old female presents to emergency room with complaints of left lower abdominal cramping. Patient reports that she is about 8 weeks with her first , reports that she began to have increased cramping to her lower abdomen last night. Patient denies any vaginal bleeding or discharge. Patient reports that she has not follow-up with her OFFICE AGENT yet. Patient denies any fevers or chills, denies any nausea vomiting or diarrhea at this time. Patient denies any dysuria, urinary urgency or frequency. PFSH Past Medical History Diminished Hearing: No Gastrointestinal Disorders: Yes (GASTROENTERITIS) Immunizations Current: Yes ?: LMP: 8 WEEKS Past Surgical History Surgical History: No Previous Surgery Social History Alcohol Use: No Tobacco Use: No Substance Use: No Allergies-Medications (Allergen,Severity, Reaction): Coded Allergies: No Known Allergies (Unverified Adverse Reaction, Unknown, 08/17/17) Reported Meds & Prescriptions Reported Meds & Active Scripts Active Review of Systems General / Constitutional: No: Fever Eyes: No: Visual changes HENT: No: Headaches Cardiovascular: No: Chest Pain or Discomfort Respiratory: No: Shortness of Breath Gastrointestinal: Positive: Abdominal Pain, No: Nausea, Vomiting, Diarrhea Genitourinary: No: Dysuria, Hesitancy, Pelvic Pain, Flank Pain, Discharge, Dysmenorrhea, Vaginal Bleeding Musculoskeletal: No: Pain Skin: No Rash Neurologic: No: Weakness Psychiatric: No: Depression Endocrine: No: Polydipsia Hematologic/Lymphatic: No: Easy Bruising Physical Exam Narrative GENERAL: Mild distress SKIN: Focused skin assessment warm/dry. HEAD: Atraumatic. Normocephalic. EYES: Pupils equal and round. No scleral icterus. No injection or drainage. ENT: No nasal bleeding or discharge. Mucous membranes pink and moist. NECK: Trachea midline. No JVD. CARDIOVASCULAR: Regular rate and rhythm. No murmur appreciated. RESPIRATORY: No accessory muscle use. Clear to auscultation. Breath sounds equal bilaterally. GASTROINTESTINAL: Abdomen soft, mild tenderness to LLQ of abdomen with no rebound or guarding, nondistended. Hepatic and splenic margins not palpable. MUSCULOSKELETAL: No obvious deformities. No clubbing. No cyanosis. No edema. NEUROLOGICAL: Awake and alert. No obvious cranial nerve deficits. Motor grossly within normal limits. Normal speech. PSYCHIATRIC: Appropriate mood and affect; insight and judgment normal. Data Data Last Documented VS Vital Signs Date Time Temp Pulse Resp B/P (MAP) Pulse Ox O2 Delivery O2 Flow Rate FiO2 08/17/17 10:01 98.8 98 20 123/64 (83) 99 Room Air Orders Orders Beta Hcg (Quant/Titer) (08/17/17 10:17) Complete Blood Count With Diff (08/17/17 10:17) Comprehensive Metabolic Panel (08/17/17 10:17) Urinalysis - C+S If Indicated (08/17/17 10:17) Iv Access Insert/Monitor (08/17/17 10:17) Ecg Monitoring (08/17/17 10:17) Sodium Chloride 0.9% Flush (Ns Flush) (08/17/17 10:30) Sodium Chlor 0.9% 1000 Ml Inj (Ns 1000 M (08/17/17 10:17) Ed Urine Pregnancytest Poc (08/17/17 10:17) Acetaminophen (Tylenol) (08/17/17 10:30) Gc And Chlamydia Pcr (08/17/17 10:19) Potassium Chloride (Kcl) (08/17/17 11:45) Us Pelvis (Ques Preg/Ectopic) (08/17/17 ) Labs Laboratory Tests Test 08/17/17 10:20 08/17/17 10:30 Urine Color YELLOW Urine Turbidity HAZY Urine pH 6.5 Urine Specific [place] 1.031 Urine Protein TRACE mg/dL Urine Glucose (UA) NEG mg/dL Urine Ketones TRACE mg/dL Urine Occult Blood TRACE Urine Nitrite NEG Urine Bilirubin NEG Urine Urobilinogen LESS THAN 2.0 MG/DL Urine Leukocyte Esterase NEG Urine RBC 2 /hpf Urine WBC 1 /hpf Urine Squamous Epithelial Cells 9 /hpf Urine Bacteria RARE /hpf Urine Mucus FEW /lpf Microscopic Urinalysis Comment CULT NOT INDICATED White Blood Count 9.5 TH/MM3 Red Blood Count 4.80 MIL/MM3 Hemoglobin 11.1 GM/DL Hematocrit 34.7 % Mean Corpuscular Volume 72.5 FL Mean Corpuscular Hemoglobin 23.2 PG Mean Corpuscular Hemoglobin Concent 32.0 % Red Cell Distribution Width 14.3 % Platelet Count 339 TH/MM3 Mean Platelet Volume 8.7 FL Neutrophils (%) (Auto) 72.9 % Lymphocytes (%) (Auto) 20.8 % Monocytes (%) (Auto) 4.5 % Eosinophils (%) (Auto) 1.2 % Basophils (%) (Auto) 0.6 % Neutrophils # (Auto) 7.0 TH/MM3 Lymphocytes # (Auto) 2.0 TH/MM3 Monocytes # (Auto) 0.4 TH/MM3 Eosinophils # (Auto) 0.1 TH/MM3 Basophils # (Auto) 0.1 TH/MM3 CBC Comment DIFF FINAL Differential Comment Blood Urea Nitrogen 7 MG/DL Creatinine 0.83 MG/DL Random Glucose 90 MG/DL Total Protein 7.6 GM/DL Albumin 3.5 GM/DL Calcium Level 8.5 MG/DL Alkaline Phosphatase 60 U/L Aspartate Amino Transf (AST/SGOT) 19 U/L Alanine Aminotransferase (ALT/SGPT) 23 U/L Total Bilirubin 0.2 MG/DL Sodium Level 139 MEQ/L Potassium Level 3.3 MEQ/L Chloride Level 107 MEQ/L Carbon Dioxide Level 22.9 MEQ/L Anion Gap 9 MEQ/L Estimat Glomerular Filtration Rate 105 ML/MIN Human Chorionic Gonadotropin, Quant 72087 MIU/ML MDM Medical Decision Making Medical Screen Exam Complete: Yes Emergency Medical Condition: Yes Medical Record Reviewed: Yes Interpretation(s) Vital Signs Date Time Temp Pulse Resp B/P (MAP) Pulse Ox O2 Delivery O2 Flow Rate FiO2 08/17/17 10:01 98.8 98 20 123/64 (83) 99 Room Air Differential Diagnosis Ectopic , ovarian cysts, round ligament pain, UTI, cervicitis Narrative Course During the course of the patients emergency department visit, the patients history, examination, and differential diagnosis were reviewed with the patient. The patient was placed on a cardiac exercise physiologist with oximetry and frequent blood pressure monitoring. The patient had 20 gauge IV access obtained and blood work sent for analysis. The patient was initially provided IV fluids as well as Tylenol for pain The patients laboratory studies were reviewed and remarkable for: CBC & BMP Diagram 08/17/17 10:30 Total Protein 7.6, Albumin 3.5, Calcium Level 8.5, Alkaline Phosphatase 60, Aspartate Amino Transf (AST/SGOT) 19, Alanine Aminotransferase (ALT/SGPT) 23, Total Bilirubin 0.2 HCG quant: 96,894 UA: trace ketones, rare bacteria, negative leuk esterase, negative nitrites Radiology studies were reviewed and remarkable for: Pelvis US: CONCLUSION: Normal appearance of intrauterine estimated at 8 weeks and 2 days. Normal heart rate is documented. Patient is feeling much better at this time. Reviewed all labs and all studies as well as all incidental findings with patient in detail. Patient will follow- up with all cultures from today, she'll follow up with her OFFICE AGENT and return to the emergency room as needed. Abdomen is soft, nontender, nondistended, no peritoneal signs on discharge. Diagnosis Primary Impression: Abdominal pain Additional Impressions: Hypokalemia Dehydration Patient Instructions: General Instructions Additional Instructions: Please provide patient with a copy of their lab work and studies at discharge* * Please follow up with your primary care doctor in 2-3 days Return to the ER if symptoms worsen or progress Return to the ER as needed Please follow-up with all cultures from today Pelvic rest until you're seen and cleared by her OFFICE AGENT Please follow up with your OFFICE AGENT as soon as possible Disposition: 01 DISCHARGE HOME Condition: Stable Karla Gonzales DO Aug 17, 2017 10:21
[2017-08-17] MEDS ORDERED: ACETAMINOPHEN 500 MG CPLT PO ONE (10:30)
[2017-08-17] MEDS ORDERED: SODIUM CHLORIDE 0.9% FLUSH 10 ML FLUSH IVF PRN (10:30)
[2017-08-17 10:50] LABS: BASOPHIL # 0.1 TH/MM3 (0-0.2); BASOPHIL % 0.6 % (0.0-2.0); EOSINOPHIL # 0.1 TH/MM3 (0-0.4); EOSINOPHIL % 1.2 % (0.0-4.0); HEMATOCRIT 34.7 % (35.0-46.0); HEMO FLAGS DIFF FINAL; LYMPH % 20.8 % (9.0-44.0); MEAN CELL VOLUME 72.5 FL (80.0-100.0); MEAN CORPUSCULAR HEMOGLOBIN 23.2 PG (27.0-34.0); MONO % 4.5 % (0.0-8.0); NEUT % 72.9 % (16.0-70.0); PLATELET COUNT 339 TH/MM3 (150-450); RED CELL DISTRIBUTION WIDTH 14.3 % (11.6-17.2); WHITE BLOOD COUNT 9.5 TH/MM3 (4.0-11.0)
[2017-08-17 11:00] LABS: BACTERIA, URINE RARE /hpf; BLOOD, URINE TRACE (NEG); GLUCOSE,URINE NEG (NEG); KETONE, URINE TRACE mg/dL (NEG); MUCUS URINE FEW /lpf (OCC); NITRITE,URINE NEG (NEG); PH, URINE 6.5 (5.0-8.5); SQUAMOUS EPITHELIAL CELL URINE 9 /hpf (0-5); URINE COLOR YELLOW (YELLW/STRAW)
[2017-08-17 11:04] LABS: COMMENT (UR) CULT NOT INDICATED; CULTURE IF INDICATED CULT NOT INDICATED
[2017-08-17 11:17] LABS: ANION GAP 9 MEQ/L (5-15); AST (GOT) 19 U/L (15-37); BICARBONATE 22.9 MEQ/L (21.0-32.0); BLOOD UREA NITROGEN 7 MG/DL (7-18); CHLORIDE 107 MEQ/L (98-107); GLOMERULAR FILTRATION RATE 105 ML/MIN (>89); POTASSIUM 3.3 MEQ/L (3.5-5.1); SODIUM (NA) 139 MEQ/L (136-145)
[2017-08-17 11:29] LABS: ALKALINE PHOSPHATASE 60 U/L (45-117); ALT (GPT) 23 U/L (10-53); BETA HCG QUANT 96894 MIU/ML (0-5); TOTAL BILIRUBIN ADULT 0.2 MG/DL (0.2-1.0)
[2017-08-17] MEDS ORDERED: POTASSIUM CHLORIDE 10 MEQ CONTROLLED RELEASE TAB PO ONE (11:45)
--- NOTE | 2017-08-17 12:08 | RADRPT ---
EXAM DATE/TIME: 08/17/2017 11:24 [facility] COMPARISON: US PELVIS (QUEST PREG/ECTOPIC), August 05, 2017, 1:34. INDICATIONS : Left lower quadrant pain. LAB(S): Beta-hC MEDICAL HISTORY : . Gastroenteritis. SURGICAL HISTORY : None. ENCOUNTER: Initial ACUITY: 1 day PAIN SCORE: 7/10 LOCATION: Bilateral pelvis MEASUREMENTS: UTERUS: 10.8 x 6.4 x 5.4 cm ENDOMETRIAL STRIPE: 13 mm RIGHT OVARY: 1.9 x 1.5 x 2.1 cm LEFT OVARY: 2.9 x 2.7 x 1.9 cm FREE FLUID: No CROWN RUMP LENGTH: 1.8 cm = 8 WKS 2 DAYS FHR: 172 BPM FINDINGS: UTERUS: The myometrium has homogeneous echotexture without mass. There is a single intrauterine gestational sac measuring 2.4 x 5.6 x 2.6 cm. Yolk sac is present and embryo is identified with crown-rump length measurement of 1.3 cm indicating gestational age of 8 weeks and 2 days. M-mode Doppler documents fet al heart rate of 172 beats per minute. RIGHT OVARY: Ovary contains no mass or significant cystic lesion. LEFT OVARY: Ovary contains no mass or significant cystic lesion. MISCELLANEOUS: No free fluid. CONCLUSION: Normal appearance of intrauterine estimated at 8 weeks and 2 days. Normal heart rate is documented. Christopher Yarbrough MD on August 17, 2017 at 12:06 Board Certified Radiologist. This report was verified electronically.
[2017-08-17 14:09] LABS: CHLAMYDIA PCR NOT DETECTED (NOT DETECT); NEISSERIA PCR NOT DETECTED (NOT DETECT)
== END 2017-08-17 12:29 | disposition home or self-care (01) ==
LOC: NEPD 10:00
DX: O99.281 Endocrine, nutritional and metabolic diseases complicating pregnancy, first trimester (principal); R10.32 Left lower quadrant pain; E86.0 Dehydration; E87.6 Hypokalemia; Z3A.08 8 weeks gestation of pregnancy
CPT/HCPCS: 76700; 80053; 81001; 84702; 84703; 85025; 87491; 87591; 96360; 99285; J7030

== ENCOUNTER 2017-10-04 18:26 | Emergency (ER) | payer OTHER ==
[~2017-10-04] VITALS: Ht 160 cm; Wt 79.0 kg
[2017-10-04 18:27] VITALS: BP 132/62; PULSE 87; RESP 14; TEMP 98.5; O2SAT 99
[2017-10-04 20:38] LABS: AUTOMATED NEUTROPHIL # 7.8 TH/MM3 (1.8-7.7); BASOPHIL # 0.1 TH/MM3 (0-0.2); BASOPHIL % 0.6 % (0.0-2.0); EOSINOPHIL # 0.6 TH/MM3 (0-0.4); EOSINOPHIL % 5.2 % (0.0-4.0); HEMATOCRIT 32.5 % (35.0-46.0); HEMOGLOBIN 10.3 GM/DL (11.6-15.3); LYMPH % 22.6 % (9.0-44.0); LYMPHOCYTE # 2.6 TH/MM3 (1.0-4.8); MEAN CELL VOLUME 72.9 FL (80.0-100.0); MEAN CORPUSCULAR HEMOGLOBIN 23.1 PG (27.0-34.0); MEAN CORPUSCULAR HGB CONC 31.7 % (32.0-36.0); MEAN PLATELET VOLUME 9.1 FL (7.0-11.0); MONO % 3.9 % (0.0-8.0); MONOCYTE # 0.4 TH/MM3 (0-0.9); NEUT % 67.7 % (16.0-70.0); PLATELET COUNT 317 TH/MM3 (150-450); RED BLOOD COUNT 4.46 MIL/MM3 (4.00-5.30); RED CELL DISTRIBUTION WIDTH 14.6 % (11.6-17.2); WHITE BLOOD COUNT 11.5 TH/MM3 (4.0-11.0)
[2017-10-04 20:41] LABS: BACTERIA, URINE MOD /hpf; BILIRUBIN, URINE NEG (NEG); BLOOD, URINE TRACE (NEG); GLUCOSE,URINE NEG (NEG); KETONE, URINE NEG (NEG); NITRITE,URINE NEG (NEG); PH, URINE 5.5 (5.0-8.5); SQUAMOUS EPITHELIAL CELL URINE 9 /hpf (0-5); URINE COLOR LIGHT-YELLOW (YELLW/STRAW); URINE LEUKOCYTE ESTERASE LARGE (NEG)
[2017-10-04 21:04] LABS: BICARBONATE 21.6 MEQ/L (21.0-32.0); CALCIUM 8.6 MG/DL (8.5-10.1); CREATININE 0.84 MG/DL (0.50-1.00)
[2017-10-04] MEDS ORDERED: PRENTAB75 (21:56)
[2017-10-04] MEDS ORDERED: SODIUM CHLOR 0.9% 1000 ML INJ 1,000 ML IV ONE (22:30)
[2017-10-04] MEDS ORDERED: ACETAMINOPHEN 325 MG TAB PO ONE (22:30)
[2017-10-04 23:43] VITALS: RESP 20
[2017-10-05] MEDS ORDERED: METR-1 PO (00:05)
[2017-10-05] MEDS ORDERED: AMOX875T PO (00:05)
--- NOTE | 2017-10-05 00:06 | PD ---
HPI Chief Complaint: Related Problem Time Seen by Provider: 22:24 Travel History International Travel<30 days: No Contact w/Intl Traveler<30days: No Traveled to known affect area: No History of Present Illness HPI Patient is a 21-year-old female approximately 15 weeks who comes in complaining of headache back pain and abdominal pain. She says she had some vaginal bleeding 2 days ago, but this is stopped. She denies nausea or vomiting. She denies fever or chills. She says she has history of scoliosis and they told her back but start hurting as a progressed. She has not taken anything for her pain. [facility] Past Medical History Medical History: Denies Significant Hx Diminished Hearing: No Gastrointestinal Disorders: Yes (GASTROENTERITIS) Immunizations Current: Yes Tetanus Vaccination: Unknown Influenza Vaccination: Yes ?: Past Surgical History Surgical History: No Previous Surgery Social History Alcohol Use: No Tobacco Use: No Substance Use: No Allergies-Medications (Allergen,Severity, Reaction): Coded Allergies: No Known Allergies (Unverified Adverse Reaction, Unknown, 10/04/17) Reported Meds & Prescriptions Reported Meds & Active Scripts Active Reported [] Review of Systems Except as stated in HPI: all other systems reviewed are Neg General / Constitutional: No: Fever, Chills Eyes: No: Blurred Vision HENT: Positive: Headaches Cardiovascular: No: Chest Pain or Discomfort Respiratory: No: Shortness of Breath Gastrointestinal: Positive: Abdominal Pain, No: Nausea, Vomiting Musculoskeletal: Positive: Pain Skin: No Rash, No Change in Pigmentation Neurologic: No: Weakness, Dizziness Physical Exam Narrative GENERAL: Awake and alert, in no acute distress. SKIN: Focused skin assessment warm/dry. HEAD: Atraumatic. Normocephalic. EYES: Pupils equal and round. No scleral icterus. ENT: Mucous membranes pink and moist. NECK: Trachea midline. No JVD. CARDIOVASCULAR: Regular rate and rhythm. No murmur appreciated. RESPIRATORY: No accessory muscle use. Clear to auscultation. Breath sounds equal bilaterally. GASTROINTESTINAL: Abdomen soft, nondistended. Tender to palpation of the suprapubic area. No rebound or guarding. No CVA tenderness. : Exam performed in the presence of a nurse. Thick greyish discharge. No cervical lesions. Os is closed. No CMT. MUSCULOSKELETAL: No obvious deformities. No clubbing. No cyanosis. No edema. NEUROLOGICAL: Awake and alert. No obvious cranial nerve deficits. Motor grossly within normal limits. Normal speech. PSYCHIATRIC: Appropriate mood and affect; insight and judgment normal. Data Data Last Documented VS Vital Signs Date Time Temp Pulse Resp B/P (MAP) Pulse Ox O2 Delivery O2 Flow Rate FiO2 10/04/17 23:43 20 10/04/17 18:27 98.5 87 132/62 (85) 99 Orders Orders Beta Hcg (Quant/Titer) (10/04/17 18:39) Complete Blood Count With Diff (10/04/17 18:39) Basic Metabolic Panel (Bmp) (10/04/17 18:39) Complete Rh (10/04/17 18:39) Urinalysis - C+S If Indicated (10/04/17 18:39) Urine Culture (10/04/17 19:45) Ed Poc Ultrasound (10/04/17 ) Sodium Chlor 0.9% 1000 Ml Inj (Ns 1000 M (10/04/17 22:30) Acetaminophen (Tylenol) (10/04/17 22:30) Iv Access Insert/Monitor (10/04/17 22:30) Wet Prep Profile (10/04/17 22:54) Gc And Chlamydia Pcr (10/04/17 22:54) Labs Laboratory Tests Test 10/04/17 19:45 10/04/17 19:50 10/04/17 22:55 Urine Color LIGHT-YELLOW Urine Turbidity HAZY Urine pH 5.5 Urine Specific [place] 1.014 Urine Protein TRACE mg/dL Urine Glucose (UA) NEG mg/dL Urine Ketones NEG mg/dL Urine Occult Blood TRACE Urine Nitrite NEG Urine Bilirubin NEG Urine Urobilinogen LESS THAN 2.0 MG/DL Urine Leukocyte Esterase LARGE Urine RBC 16 /hpf Urine WBC 38 /hpf Urine Squamous Epithelial Cells 9 /hpf Urine Bacteria MOD /hpf Microscopic Urinalysis Comment CULTURE INDICATED White Blood Count 11.5 TH/MM3 Red Blood Count 4.46 MIL/MM3 Hemoglobin 10.3 GM/DL Hematocrit 32.5 % Mean Corpuscular Volume 72.9 FL Mean Corpuscular Hemoglobin 23.1 PG Mean Corpuscular Hemoglobin Concent 31.7 % Red Cell Distribution Width 14.6 % Platelet Count 317 TH/MM3 Mean Platelet Volume 9.1 FL Neutrophils (%) (Auto) 67.7 % Lymphocytes (%) (Auto) 22.6 % Monocytes (%) (Auto) 3.9 % Eosinophils (%) (Auto) 5.2 % Basophils (%) (Auto) 0.6 % Neutrophils # (Auto) 7.8 TH/MM3 Lymphocytes # (Auto) 2.6 TH/MM3 Monocytes # (Auto) 0.4 TH/MM3 Eosinophils # (Auto) 0.6 TH/MM3 Basophils # (Auto) 0.1 TH/MM3 CBC Comment DIFF FINAL Differential Comment Blood Urea Nitrogen 7 MG/DL Creatinine 0.84 MG/DL Random Glucose 80 MG/DL Calcium Level 8.6 MG/DL Sodium Level 135 MEQ/L Potassium Level 3.9 MEQ/L Chloride Level 105 MEQ/L Carbon Dioxide Level 21.6 MEQ/L Anion Gap 8 MEQ/L Estimat Glomerular Filtration Rate 104 ML/MIN Human Chorionic Gonadotropin, Quant 56016 MIU/ML Clue Cells (Wet Prep) PRESENT Vaginal Trichomonas (Wet Prep) NONE SEEN Vaginal Yeast (Wet Prep) NONE SEEN MDM Medical Decision Making Medical Screen Exam Complete: Yes Emergency Medical Condition: Yes Medical Record Reviewed: Yes Differential Diagnosis UTI versus BV versus dehydration Narrative Course Patient is a 21-year-old female, 15 weeks , who comes in complaining of abdominal pain with back pain and headache. She says she had some vaginal bleeding 2 days ago. Currently there is no bleeding. IV established, labs sent. Urine is positive for UTI. Wet prep is positive for clue cells. Patient given IV fluids and Tylenol. Her blood type is O+, there is no need for program. She'll be discharged with prescriptions for amoxicillin and Flagyl. Advised follow-up with her OB. Advised to return to the ED as needed for any worsening symptoms. Procedures Procedure Narrative Emergency Department Pelvic ultrasound was performed with patient consent. The curvilinear probe was used in the transverse and sagittal views within the suprapubic region revealing single intrauterine . heart rate was 167. Fetus is moving around, there is no free fluid in the pelvis. Diagnosis Primary Impression: UTI (urinary tract infection) Qualified Codes: N30.00 - Acute cystitis without hematuria Additional Impression: Bacterial vaginitis Patient Instructions: Bacterial Vaginosis (ED), General Instructions, Urinary Tract Infection in (ED) Additional Instructions: Take all of your antibiotic. Follow-up with OB. Drink plenty of fluids. Return to the ED as needed for any worsening symptoms. Scripts Amoxicillin (Amoxicillin) 875 Mg Tab 875 MG PO BID for Infection for 7 Days, #14 TAB 0 Refills Prov: Mckenna Norris MD 10/05/17 Metronidazole (Flagyl) 500 Mg Tab 500 MG PO QID for Infection for 7 Days, TAB 0 Refills Prov: Mckenna Norris MD 10/05/17 Disposition: 01 DISCHARGE HOME Condition: Stable Mckenna Norris MD Oct 05, 2017 00:06
== END 2017-10-05 00:28 | disposition home or self-care (01) ==
LOC: NEPD 18:26
DX: O23.12 Infections of bladder in pregnancy, second trimester (principal); N30.00 Acute cystitis without hematuria; O23.592 Infection of other part of genital tract in pregnancy, second trimester; N76.0 Acute vaginitis; B96.89 Other specified bacterial agents as the cause of diseases classified elsewhere; Z3A.15 15 weeks gestation of pregnancy
CPT/HCPCS: 80048; 81001; 84702; 85025; 86901; 87086; 87210; 87491; 87591; 99284; J7030

== ENCOUNTER 2017-12-18 11:16 | Emergency (ER) | payer OTHER ==
[~2017-12-18 11:16] MED LIST changes: +AMOX875T PO; -CLOT1CRE23 VAGINAL; -DICY10 PO; -LOMO2.5T PO; +METR-1 PO; -PREN29TA PO; +PRENTAB75; -ZOFR4TAB3 SL
[2017-12-18] MEDS ORDERED: TERC.4%V VAGINAL (12:04)
--- NOTE | 2017-12-18 12:05 | PD ---
HPI Chief Complaint Vaginal itching with pink discharge Date Seen: Dec 18, 2017 Time Seen: 11:59 Travel History International Travel<30 Days: No Contact w/Intl Traveler<30Days: No Known Affected Area: No History of Present Illness HPI 22-year-old at 26 weeks 1 day complains of vaginal discharge with itching for the past 3-5 days associated with a slight tinge of pink discharge that occurred 3 days ago. She has not seen any more pain discharge but she does complain of continued itching despite using a 1 day Monistat approximately a week ago. Patient just finished a round of amoxicillin that she was taking for an ear infection. She sees Dr. Funk in [facility]. Weeks Gestation: 26 Para: 0 : 1 History Past Medical History Medical History: Denies Significant Hx Past Surgical History Surgical History: No Previous Surgery Family History Family History: Negative Social History Alcohol Use: No Tobacco Use: No Substance Abuse: No Allergies-Medications (Allergen,Severity, Reaction): Coded Allergies: No Known Allergies (Unverified Adverse Reaction, Unknown, 12/18/17) Home Meds Active Scripts Amoxicillin (Amoxicillin) 875 Mg Tab, 875 MG PO BID for Infection for 7 Days, # 14 TAB 0 Refills Prov:Mckenna Norris MD 10/05/17 Metronidazole (Flagyl) 500 Mg Tab, 500 MG PO QID for Infection for 7 Days, TAB 0 Refills Prov:Mckenna Norris MD 10/05/17 Reported Medications [] () No Conflict Check 10/04/17 Review of Systems Except as stated in HPI: all other systems reviewed are Neg Physical Exam Narrative GENERAL: Well-nourished, well-developed patient. SKIN: Warm and dry. HEAD: Normocephalic and atraumatic. EYES: No scleral icterus. No injection or drainage. ENT: No nasal drainage noted. Mucous membranes pink. Airway patent. NECK: Supple, trachea midline. No JVD. CARDIOVASCULAR: Regular rate and rhythm without murmurs, gallops, or rubs. RESPIRATORY: Breath sounds equal bilaterally. No accessory muscle use. ABDOMEN/GI: Abdomen soft, non-tender, bowel sounds present, no rebound, no guarding Gravid to [-26] weeks size Fundal Height: [-] GENITOURINARY: External Genitalia: intact and normal in appearance BUS glands: [Mild erythema] obvious yeast infection with discharge within the vaginal cavity Cervix: [-] Dilatation: [-] Effacement: [-] Station: [-] Presentation: [-] Membranes: [intact or ruptured] intact Uterine Contractions: [-] Absent FHT's: Category: [-] 1 Baseline: [-] 140 Reactive: [-] Moderate Variability: [-] Moderate Decels: [-] Absent Data Data Vital Signs Reviewed: Yes [facility] Medical Record Reviewed: Yes Plan 22-year-old at 26 weeks 1 day with a yeast infection Terazol 3 day was prescribed Follow-up with her OB provider Diagnosis Diagnosis: Primary Impression: Yeast vaginitis Additional Impressions: 26 weeks gestation of Vaginal bleeding during , antepartum Disposition: 01 DISCHARGE HOME Scripts Terconazole Vaginal Cream (Terazol 7 Vaginal Cream) 0.4 % Cream 1 APPL VAGINAL HS for Fungal Infection for 7 Days, #45 GM 0 Refills 1 applicatorful intravaginally x 7 nights Prov: Gina Menezes MD 12/18/17 Gina Menezes MD Dec 18, 2017 12:05
[2017-12-18 12:37] LABS: BACTERIA, URINE RARE /hpf; BILIRUBIN, URINE NEG (NEG); BLOOD, URINE NEG (NEG); GLUCOSE,URINE NEG (NEG); KETONE, URINE NEG (NEG); MUCUS URINE FEW /lpf (OCC); NITRITE,URINE NEG (NEG); SQUAMOUS EPITHELIAL CELL URINE 7 /hpf (0-5); URINE COLOR YELLOW (YELLW/STRAW); URINE LEUKOCYTE ESTERASE LARGE (NEG)
== END 2017-12-18 12:14 | disposition home or self-care (01) ==
LOC: HOBED 11:16
DX: O23.592 Infection of other part of genital tract in pregnancy, second trimester (principal); N76.0 Acute vaginitis; O46.92 Antepartum hemorrhage, unspecified, second trimester; Z3A.26 26 weeks gestation of pregnancy
CPT/HCPCS: 81001; 84112; 99284

== ENCOUNTER → 2018-01-06 | Emergency (ER) | payer OTHER ==
[~2018-01-06] MED LIST changes: +TERC.4%V VAGINAL
--- NOTE | 2018-01-06 22:35 | PD ---
HPI Chief Complaint vaginal bleeding/abdominal cramping Date Seen: Jan 06, 2018 Travel History International Travel<30 Days: No Contact w/Intl Traveler<30Days: No History of Present Illness HPI Ms. Taylor is a 22 yo G1 at 29 5/7 weeks (DENISE 03/19/2018) patient of Dr. Funk who presents with vaginal bleeding and reported abdominal/vaginal cramping. Patient reports that she noticed vaginal bleeding within the past hour; patient was showering and noticed blood running down her leg afterwards. Patient has since had onset of abdominal/vaginal pain.Patient states that she also had some abdominal cramping earlier today which lasted ~2 minutes before resolving spontaneously. Patient denies known trauma to vagina but states she was scrubbing her vagina in shower. Patient does not report headaches, vision changes, shortness of breath, dysuria, blood in bowel movements, or other concerns recently. Patient reports benign course. She had some limited vaginal bleeding earlier in ; this was evaluated by a physician and patient was told it was benign. Patient reports being told her ultrasounds previously were normal; she is not aware of any previa or other placental concerns. Patient does not use drugs. records reviewed: labs unremarkable- O_ blood, antibody negative, infectious diseases negative : 1 History Past Medical History Medical History: Denies Significant Hx Obstetric History Obstetric History G1 Past Surgical History Surgical History: No Previous Surgery Family History Narrative Family History Mom- seizures Social History Alcohol Use: No Tobacco Use: No Substance Abuse: No Allergies-Medications (Allergen,Severity, Reaction): Coded Allergies: No Known Allergies (Unverified Adverse Reaction, Unknown, 12/18/17) Home Meds Active Scripts Terconazole Vaginal Cream (Terazol 7 Vaginal Cream) 0.4 % Cream, 1 APPL VAGINAL HS for Fungal Infection for 7 Days, #45 GM 0 Refills 1 applicatorful intravaginally x 7 nights Prov:Gina Menezes MD 12/18/17 Amoxicillin (Amoxicillin) 875 Mg Tab, 875 MG PO BID for Infection for 7 Days, # 14 TAB 0 Refills Prov:Mckenna Norris MD 10/05/17 Metronidazole (Flagyl) 500 Mg Tab, 500 MG PO QID for Infection for 7 Days, TAB 0 Refills Prov:Mckenna Norris MD 12/19/17 Reported Medications [] () No Conflict Check 10/04/17 Review of Systems General / Constitutional: No: Fever Eyes: No: Blurred Vision HENT: No: Headaches Cardiovascular: No: Chest Pain or Discomfort Respiratory: No: Short of Breath Gastrointestinal: Abdominal Pain (cramping today), No: Nausea, Vomiting Genitourinary: No: Urgency, Dysuria Skin: No Rash, No Itching Neurologic: No: Weakness, Dizziness Psychiatric: No: Anxiety, Depression Physical Exam HR 93 RR 18 BP 124/72 Narrative GENERAL: Well-nourished, well-developed patient. SKIN: Warm and dry. HEAD: Normocephalic and atraumatic. EYES: No scleral icterus. No injection or drainage. ENT: No nasal drainage noted. Mucous membranes pink. Airway patent. NECK: Supple, trachea midline. No JVD. CARDIOVASCULAR: Regular rate and rhythm without murmurs. Normal perfusion RESPIRATORY: Breath sounds equal bilaterally. No accessory muscle use. ABDOMEN/GI: Abdomen soft, non-tender, bowel sounds present, no rebound, no guarding Gravid EXTREMITIES: No cyanosis or edema. BACK: Nontender without obvious deformity. No CVA tenderness. NEUROLOGICAL: Awake and alert. Motor and sensory function grossly within normal limits GENITOURINARY: External Genitalia: R external labial abrasion which is linear in nature ~3 cm in length; associated blood surrounding abrasion. Hemostasis spontaneously with labial closure Cervix: Closed, no blood in vaginal cavity or coming from cervix Uterine Contractions: None FHT's: Category: 1 Baseline: 145 Reactive: Y Variability: Mod Decels: None Data Data Vital Signs Reviewed: Yes MDM Medical Record Reviewed: Yes Narrative Course / MDM Ms. Taylor is a 22 yo G1 at 29 5/7 weeks (DENISE 03/19/2018) who presents with concern for abdominal/vaginal pain and vaginal bleeding -Cat 1 rhythm -No contractions -Normal maternal VS -External vaginal scrape ~3cm in length on exam; no intravaginal/cervical bleeding Plan: -Discussed with patient that her superficial vaginal abrasion without associated intravaginal bleeding is reassuring that her bleeding is from skin abrasion and that there are no concerns at this time. Since bleeding stopped spontaneously, no need for skin repair. Patient will make sure not to scrub area aggressively until labial skin healing; she can sit on pad. Patient will follow-up as scheduled with her OBGYN Dr. Funk Disposition: 01 DISCHARGE HOME Condition: Stable Patient Instructions: General Instructions Tres Sosa MD, R3 Jan 06, 2018 22:35
== END | disposition home or self-care (01) ==
LOC: HOBED 22:06
DX: O26.893 Other specified pregnancy related conditions, third trimester (principal); R10.2 Pelvic and perineal pain; Z3A.29 29 weeks gestation of pregnancy
CPT/HCPCS: 99283

== ENCOUNTER 2018-01-29 16:23 | Emergency (ER) | payer OTHER ==
[2018-01-29] VITALS (21 sets, daily range): BP systolic 125–139; BP diastolic 64–71; PULSE 96–115; RESP 16–20; TEMP 98.3–98.5; O2SAT 98–100
[2018-01-29] MEDS ORDERED: ACETAMINOPHEN 325 MG TAB PO ONE (17:15)
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
[2018-01-29] MEDS ORDERED: BETAMETHASONE SOD PHOS/ACETATE SUSP 30 MG/5 ML VIAL IM SCH (18:15)
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
[2018-01-29 18:27] LABS: HEMATOCRIT 29.7 % (35.0-46.0); HEMOGLOBIN 9.5 GM/DL (11.6-15.3); MEAN CELL VOLUME 72.4 FL (80.0-100.0); MEAN CORPUSCULAR HEMOGLOBIN 23.1 PG (27.0-34.0); MEAN CORPUSCULAR HGB CONC 31.9 % (32.0-36.0); MEAN PLATELET VOLUME 9.1 FL (7.0-11.0); PLATELET COUNT 278 TH/MM3 (150-450); RED CELL DISTRIBUTION WIDTH 15.3 % (11.6-17.2); WHITE BLOOD COUNT 11.8 TH/MM3 (4.0-11.0)
[2018-01-29 21:53] LABS: KLEIHAUER BETKE (FETAL HGB) 0.2 % (0.0-0.0)
== END 2018-01-29 22:43 | disposition home or self-care (01) ==
LOC: HOBED 16:23
DX: O26.893 Other specified pregnancy related conditions, third trimester (principal); M54.5 Low back pain; R51 Headache; R10.9 Unspecified abdominal pain; V49.40XA Driver injured in collision with unspecified motor vehicles in traffic accident, initial encounter; Z3A.32 32 weeks gestation of pregnancy
CPT/HCPCS: 59025; 76819; 80307; 83030; 85027; 85384; 86850; 86900; 86901; 96372; 99284; J0702

== ENCOUNTER 2018-01-30 17:37 | Outpatient (CLI) | payer OTHER ==
[~2018-01-30 17:37] MED LIST changes: -AMOX875T PO; -METR-1 PO; -TERC.4%V VAGINAL
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
[2018-01-30] MEDS ORDERED: BETAMETHASONE SOD PHOS/ACETATE SUSP 30 MG/5 ML VIAL IM ONE (18:00)
== END 2018-01-30 18:21 | disposition home or self-care (01) ==
LOC: HOBG 17:37 → HOBED 18:21
PROVIDERS: ATTEND Obstetrics & Gynecology
DX: O26.93 Pregnancy related conditions, unspecified, third trimester (principal); Z3A.32 32 weeks gestation of pregnancy
CPT/HCPCS: J0702